=== PATIENT | male | born 1970 | race African-American/Black ===

== ENCOUNTER 2023-03-13 05:15 | Day surgery (SDC) | payer BC ==
[2023-03-07 14:42] VITALS: BMI 36.7
[2023-03-13 10:39] VITALS: TEMP 97.5
[2023-03-13 10:56] VITALS: BP 117/80; PULSE 76; RESP 15
== END 2023-03-13 11:06 | disposition home or self-care (01) ==
LOC: JASU-ENDO 05:15
PROVIDERS: ATTEND Internal Medicine Gastroenterology
PROC: 0DBP8ZX Excision of Rectum, Via Natural or Artificial Opening Endoscopic, Diagnostic (ICD-10-PCS; 2023-03-13)
PROC: 0DBK8ZX Excision of Ascending Colon, Via Natural or Artificial Opening Endoscopic, Diagnostic (ICD-10-PCS; principal; 2023-03-13 10:00)
DX: Z12.11 Encounter for screening for malignant neoplasm of colon (principal); D12.2 Benign neoplasm of ascending colon; D12.8 Benign neoplasm of rectum; K64.8 Other hemorrhoids
CPT/HCPCS: 82962; 88305-TC